=== PATIENT | male | born 1940 | race Caucasian/White ===

== ENCOUNTER → 2018-03-14 | Outpatient (CLI) | payer MEDICARE, OTHER ==
[~2018-03-14] MED LIST: ATOR20TA PO; CLOM50CA2 PO; DIAZ10TA PO; DULO60CA7 PO; ESOM40CA PO; GABA100C PO; OXYC-302 PO; OXYC80TA25 PO; TERA10CA3 PO; TEST75GE TD; TRAM50TA2 PO
[2018-03-14 13:19] LABS: CHOLESTEROL, TOTAL 197 mg/dL (140-239); HDL CHOL % 50 % (26-37); HDL CHOLESTEROL (DIRECT) 99 mg/dL (40-60); LDL CHOLESTEROL,CALCULATED 78 mg/dL (54-169); LDL/HDL RATIO 0.8 (0.5-3.0); TRIGLYCERIDES 98 mg/dL (50-200); VLDL CHOLESTEROL 20 mg/dL (0-25)
== END | disposition home or self-care (01) ==
LOC: CFH 07:08
PROVIDERS: ATTEND Internal Medicine
DX: N32.0 Bladder-neck obstruction (principal); E78.5 Hyperlipidemia, unspecified
CPT/HCPCS: 36415; 80061; 84153

== ENCOUNTER → 2018-06-20 | Outpatient (CLI) | payer MEDICARE, OTHER ==
[~2018-06-20] MED LIST changes: +ACET325T26 PO; +IBUP-1221 PO
== END | disposition home or self-care (01) ==
LOC: STAR 10:49
PROVIDERS: ATTEND Orthopaedic Surgery
DX: Z01.818 Encounter for other preprocedural examination (principal); M16.12 Unilateral primary osteoarthritis, left hip; M25.552 Pain in left hip
CPT/HCPCS: 93005

== ENCOUNTER 2018-06-25 05:39 | Day surgery (SDC) | payer MEDICARE, OTHER ==
[~2018-06-25] VITALS: Ht 170.2 cm; Wt 64.0 kg
[2018-06-25] MEDS ORDERED: LACTATED RINGERS 1,000 ML IV SCH (06:03)
[2018-06-25 06:19] VITALS: BP 145/93
[2018-06-25] MEDS ORDERED: methylPREDNISolone *ACETATE* 40 MG/ML ONE (06:38)
[2018-06-25] MEDS ORDERED: BUPIVACAINE/PF 0.5% ONE (06:38)
[2018-06-25] MEDS ORDERED: MIDAZOLAM 1 MG/ML, 2ML ONE (06:47)
[2018-06-25] MEDS ORDERED: PROPOFOL 10 MG/ML, 20ML ONE (07:10)
[2018-06-25] MEDS ORDERED: ONDANSETRON 2MG/ML, 2ML IVPush PRN (07:30)
[2018-06-25] MEDS ORDERED: ACETAMINOPHEN 325 MG TABLET PO PRN (07:30)
[2018-06-25] MEDS ORDERED: PROMETHAZINE 25 MG/ML, 1ML IM PRN (07:30)
[2018-06-25 09:53] LABS: CELLS COUNTED 84
== END 2018-06-25 09:10 | disposition home or self-care (01) ==
LOC: OUT 05:39
PROVIDERS: ATTEND Orthopaedic Surgery
DX: T84.84XA Pain due to internal orthopedic prosthetic devices, implants and grafts, initial encounter (principal); I10 Essential (primary) hypertension; Z96.641 Presence of right artificial hip joint; Z87.39 Personal history of other diseases of the musculoskeletal system and connective tissue; Z98.890 Other specified postprocedural states; Y83.8 Other surgical procedures as the cause of abnormal reaction of the patient, or of later complication, without mention of misadventure at the time of the procedure; Y92.89 Other specified places as the place of occurrence of the external cause
CPT/HCPCS: 20610; 73501; 77002; 87070; 87075; 87205; 89051; J1030; J2250; J2704; J3490; J7120; 76000

== ENCOUNTER 2018-07-16 08:02 | Inpatient (IN) | payer MEDICARE, OTHER ==
[2018-07-14 13:47] VITALS: BP 132/79
[2018-07-15 08:35] LABS: BASOPHILS # (AUTO) 0.04 x10^3/uL (0-0.1); BASOPHILS % (AUTO) 1 % (0-1); EOSINOPHILS # (AUTO) 0.31 x10^3/uL (0-0.4); EOSINOPHILS % (AUTO) 5 % (1-7); LYMPHOCYTES # (AUTO) 1.57 x10^3/uL (1-3.4); LYMPHOCYTES % (AUTO) 23 % (22-44); MD NO; MEAN CORPUSCULAR HEMOGLOBIN 32.8 pg (27.5-34.5); MEAN CORPUSCULAR HGB CONC 33.8 g/dL (33.2-36.2); MEAN PLATELET VOLUME 7.7 fL (7.4-10.4); MONOCYTES # (AUTO) 0.36 x10^3/uL (0.2-0.8); MONOCYTES % (AUTO) 5 % (2-9); NEUTROPHILS # (AUTO) 4.57 x10^3/uL (1.8-6.8); NEUTROPHILS % (AUTO) 67 % (42-75); PLATELET COUNT 326 x10^3/uL (130-400); RED BLOOD COUNT 4.65 x10^6/uL (4.38-5.82); RED CELL DISTRIBUTION WIDTH 13.1 % (9.4-14.8)
[2018-07-15 08:47] LABS: ALANINE AMINOTRANSFERASE 32 U/L (12-78); ALBUMIN 4.3 g/dL (3.4-5.0); ANION GAP 8 mmol/L (5-15); CALCIUM 8.8 mg/dL (8.5-10.1); CHLORIDE 97 mmol/L (98-107); CREATININE 0.83 mg/dL (0.7-1.3)
[2018-07-15 08:50] LABS: ALKALINE PHOSPHATASE 83 U/L (45-117); BILIRUBIN,TOTAL 0.6 mg/dL (0.2-1.0); TOTAL PROTEIN 7.9 g/dL (6.4-8.2)
[2018-07-15 10:43] LABS: MICROSCOPIC NOT IND
[2018-07-15 10:49] LABS: CULTURE INDICATED? NO
[~2018-07-16] VITALS: Ht 170.2 cm; Wt 68.1 kg
[~2018-07-16 08:02] MED LIST changes: +EPINEPHRINE 1 MG/ML, 1ML ONE; +KETOROLAC 60 MG/2 ML ONE; +ROPIvacaine/PF 0.2%, 20 ML ONE; +SODIUM CHLORIDE 0.9% 100 ML ONE; +TRANEXAMIC ACID 100 MG/ML, 10ML ONE; +VANCOMYCIN 1,000 MG ONE
[2018-07-16] MEDS ORDERED: LACTATED RINGERS 1,000 ML IV SCH (09:06)
[2018-07-16] MEDS ORDERED: CELE200C PO (09:18)
[2018-07-16] MEDS ORDERED: FINA5TAB4 PO (09:18)
[2018-07-16] MEDS ORDERED: CLOM50CA2 PO (09:18)
[2018-07-16] MEDS ORDERED: MELO15TA24 PO (09:18)
[2018-07-16] MEDS ORDERED: VANCOMYCIN PER PHARMACY MC ONE (09:30)
[2018-07-16] MEDS ORDERED: LIDOCAINE-MPF 1%, 2ML INFIL ONE (09:30)
[2018-07-16] MEDS ORDERED: PHARMACOKINETIC CONSULTATION MC ONE (10:00)
[2018-07-16] MEDS ORDERED: VANCOMYCIN 1,200 MG in SODIUM CHLORIDE 0.9% 250 ML IV ONE (10:00)
[2018-07-16] MEDS ORDERED: MIDAZOLAM 1 MG/ML, 2ML ONE (10:14)
[2018-07-16] MEDS ORDERED: FENTANYL PF 250 MCG/5ML ONE (10:14)
[2018-07-16] MEDS ORDERED: PROPOFOL 10 MG/ML, 20ML ONE (11:14)
[2018-07-16] MEDS ORDERED: SUCCINYLCHOLINE 20 MG/ML, 10ML ONE (11:14)
[2018-07-16] MEDS ORDERED: ROCURONIUM 10MG/ML,5ML ONE (11:14)
[2018-07-16] MEDS ORDERED: SUGAMMADEX 200 MG/2 ML IVPush ONE (12:58)
[2018-07-16] MEDS ORDERED: MEPERIDINE/PF 50 MG/ML ONE (13:26)
[2018-07-16] MEDS ORDERED: PROMETHAZINE 25 MG/ML, 1ML IM PRN (13:30)
[2018-07-16] MEDS: FENTANYL PF 100 MCG/2ML IV PRN ×3 (13:30→14:20)
[2018-07-16] MEDS ORDERED: DIPHENHYDRAMINE 50 MG CAPSULE PO PRN (13:30)
[2018-07-16] MEDS ORDERED: ONDANSETRON 2MG/ML, 2ML IV PRN ×2 (13:30→14:00)
[2018-07-16] MEDS ORDERED: BISACODYL 10 MG SUPP PR PRN (13:30)
[2018-07-16] MEDS ORDERED: ZOLPIDEM 5MG TABLET PO PRN (13:30)
[2018-07-16] MEDS ORDERED: ONDANSETRON 4 MG TABLET PO PRN (13:30)
[2018-07-16] MEDS ORDERED: ALUMINUM/MAG/SIMETHICONE 30 ML UDC PO PRN (13:30)
[2018-07-16] MEDS ORDERED: ACETAMINOPHEN 650 MG/20.3 ML UDC PO PRN (13:30)
[2018-07-16] MEDS ORDERED: SENNA/DOCUSATE TABLET PO PRN (13:30)
[2018-07-16] MEDS ORDERED: DIAZEPAM 5 MG TABLET PO PRN (13:30)
[2018-07-16] MEDS ORDERED: MAGNESIUM HYDROXIDE 8%, 30ML UDC PO PRN (13:30)
[2018-07-16] MEDS ORDERED: LORazepam 1MG TABLET PO PRN (13:30)
[2018-07-16] MEDS ORDERED: HYDROcodone/APAP 5/325 TABLET PO PRN (13:30)
[2018-07-16] MEDS ORDERED: PROMETHAZINE 12.5 MG SUPP PR PRN ×2 (13:30→14:00)
[2018-07-16] MEDS ORDERED: FENTANYL PF 100 MCG/2ML ONE (13:36)
[2018-07-16] MEDS ORDERED: LABETALOL 5MG/ML, 20ML IV PRN (14:00)
[2018-07-16] MEDS ORDERED: MEPERIDINE/PF 25MG/0.5ML IVPush PRN (14:00)
[2018-07-16] MEDS ORDERED: hydrALAzine 20 MG/ML, 1ML IV PRN (14:00)
[2018-07-16] MEDS ORDERED: TRANEXAMIC ACID 1,000 MG in SODIUM CHLORIDE 0.9% 100 ML IVPB ONE (14:00)
[2018-07-16] MEDS ORDERED: ONDANSETRON ODT 8 MG PO PRN (14:00)
[2018-07-16] MEDS ORDERED: OXYcodone 5 MG/5 ML ORAL.SOL UDC PO PRN (14:00)
[2018-07-16] MEDS ORDERED: HYDROmorphone 1 MG/ML, 1ML IV PRN (14:00)
[2018-07-16] MEDS ORDERED: ACETAMINOPHEN 650 MG/20.3 ML UDC ONE (14:13)
[2018-07-16] MEDS ORDERED: OXYcodone 5 MG/5 ML ORAL.SOL UDC ONE ×2 (14:14→14:17)
[2018-07-16 15:41] VITALS: BP 92/52
[2018-07-16] MEDS ORDERED: HYDROmorphone 2 MG/ML, 1ML ONE (17:22)
[2018-07-16] MEDS: HYDROmorphone 1 MG/ML, 1ML IV PRN ×2 (17:30→17:45)
[2018-07-16] MEDS: ASPIRIN 81 MG TABLET EC PO SCH (17:43)
[2018-07-16] MEDS: D5%-0.45% NACL 1,000 ML IV SCH (17:48)
[2018-07-16] MEDS: OXYcodone IR 5MG TABLET PO PRN (18:40)
[2018-07-16] MEDS: CEFAZOLIN PMX 1GM/50ML 50 ML IVPB SCH (20:04)
[2018-07-16] MEDS: ATORVASTATIN 20 MG TABLET PO SCH (20:04)
[2018-07-16] MEDS: DOCUSATE 100 MG CAPSULE PO SCH (20:05)
[2018-07-16] MEDS: CLOMIPRAMINE HCL 50 MG HOMEMEDPO SCH (20:05)
[2018-07-16 20:49] VITALS: BP 116/65
[2018-07-16 23:22] VITALS: BP 114/57
[2018-07-17] MEDS: OXYcodone IR 5MG TABLET PO PRN ×5 (00:47→17:12)
[2018-07-17 02:30] VITALS: BP 120/71
[2018-07-17] MEDS: D5%-0.45% NACL 1,000 ML IV SCH ×3 (03:45→23:45)
[2018-07-17] MEDS: CEFAZOLIN PMX 1GM/50ML 50 ML IVPB SCH (03:51)
[2018-07-17] MEDS: ASPIRIN 81 MG TABLET EC PO SCH ×2 (05:34→17:12)
[2018-07-17] MEDS ORDERED: DEXAMETHASONE 4 MG/ML, 1ML IVPush SCH (06:00)
[2018-07-17 07:23] VITALS: BP 112/68
[2018-07-17] MEDS: TAMSULOSIN 0.4 MG CAP.ER.24H PO SCH (08:34)
[2018-07-17] MEDS: PANTOPROZOLE 40MG TABLET PO SCH (08:34)
[2018-07-17] MEDS: DOCUSATE 100 MG CAPSULE PO SCH ×2 (08:34→20:35)
[2018-07-17] MEDS: FINASTERIDE 5 MG TABLET PO SCH (08:34)
[2018-07-17] MEDS: MULTIVITAMINS/MINERALS TABLET PO SCH (08:34)
[2018-07-17] MEDS: DULOXETINE 30 MG CAPSULE.DR PO SCH (08:34)
[2018-07-17] MEDS ORDERED: HYDROmorphone 2 MG/ML, 1ML ONE (08:38)
[2018-07-17] MEDS: HYDROmorphone 1 MG/ML, 1ML IV PRN (08:44)
[2018-07-17] MEDS: CLOMIPRAMINE HCL 50 MG HOMEMEDPO SCH ×2 (08:47→09:23)
[2018-07-17 13:16] VITALS: BP 146/80
[2018-07-17] MEDS: KETOROLAC 30 MG/1 ML IV SCH ×2 (13:36→23:02)
[2018-07-17 20:00] VITALS: BP 143/76
[2018-07-17] MEDS: ATORVASTATIN 20 MG TABLET PO SCH (20:35)
[2018-07-18 02:00] VITALS: BP 107/67
[2018-07-18] MEDS: OXYcodone IR 5MG TABLET PO PRN ×4 (02:30→15:13)
[2018-07-18] MEDS: KETOROLAC 30 MG/1 ML IV SCH (05:50)
[2018-07-18] MEDS: ASPIRIN 81 MG TABLET EC PO SCH (05:51)
[2018-07-18 06:35] VITALS: BP 99/65
[2018-07-18] MEDS: CLOMIPRAMINE HCL 50 MG HOMEMEDPO SCH (07:31)
[2018-07-18] MEDS: TAMSULOSIN 0.4 MG CAP.ER.24H PO SCH (07:33)
[2018-07-18] MEDS: PANTOPROZOLE 40MG TABLET PO SCH (07:33)
[2018-07-18] MEDS: DULOXETINE 30 MG CAPSULE.DR PO SCH (07:33)
[2018-07-18] MEDS: FINASTERIDE 5 MG TABLET PO SCH (07:33)
[2018-07-18] MEDS: DOCUSATE 100 MG CAPSULE PO SCH (07:33)
[2018-07-18] MEDS: MULTIVITAMINS/MINERALS TABLET PO SCH (07:34)
[2018-07-18] MEDS: D5%-0.45% NACL 1,000 ML IV SCH (07:34)
[2018-07-18 12:23] VITALS: BP 105/63
== END 2018-07-18 16:01 | disposition home or self-care (01) | DRG 467 ==
LOC: ORIP 08:02 → 4NOR 14:58 → DCLOUNGE 07-18 15:44
PROVIDERS: ADMIT Orthopaedic Surgery; ATTEND Orthopaedic Surgery
PROC: 0SPB0JZ Removal of Synthetic Substitute from Left Hip Joint, Open Approach (ICD-10-PCS; 2018-07-16)
PROC: 0LS Tendons, Reposition (ICD-10-PCS; 2018-07-16)
PROC: 0SRB01Z Replacement of Left Hip Joint with Metal Synthetic Substitute, Open Approach (ICD-10-PCS; principal; 2018-07-16 11:00)
DX: T84.031A Mechanical loosening of internal left hip prosthetic joint, initial encounter (principal); E87.1 Hypo-osmolality and hyponatremia; Y83.8 Other surgical procedures as the cause of abnormal reaction of the patient, or of later complication, without mention of misadventure at the time of the procedure; E66.01 Morbid (severe) obesity due to excess calories; M19.90 Unspecified osteoarthritis, unspecified site; Y92.89 Other specified places as the place of occurrence of the external cause; Z68.23 Body mass index [BMI] 23.0-23.9, adult
CPT/HCPCS: 36415; 72170; 80053; 81003; 85014; 85018; 85025; 86850; 86900; 87081; 87147; C1713; G0378; J0171; J0690; J1100; J1170; J1885; J2175; J2250; J2704; J2795; J3010; J3370; C1776; J0330; J7050; J7120

== ENCOUNTER → 2019-11-12 | Outpatient (CLI) | payer MEDICARE, OTHER ==
[~2019-11-12] MED LIST changes: +CELE200C PO; -EPINEPHRINE 1 MG/ML, 1ML ONE; +FINA5TAB4 PO; -KETOROLAC 60 MG/2 ML ONE; +MELO15TA24 PO; -ROPIvacaine/PF 0.2%, 20 ML ONE; -SODIUM CHLORIDE 0.9% 100 ML ONE; -TRANEXAMIC ACID 100 MG/ML, 10ML ONE; -VANCOMYCIN 1,000 MG ONE
== END | disposition home or self-care (01) ==
LOC: CFH 11:02
PROVIDERS: ATTEND Nurse Practitioner
DX: S76.311A Strain of muscle, fascia and tendon of the posterior muscle group at thigh level, right thigh, initial encounter (principal); X58.XXXA Exposure to other specified factors, initial encounter; Y93.89 Activity, other specified; Y92.89 Other specified places as the place of occurrence of the external cause; Y99.8 Other external cause status

== ENCOUNTER 2020-02-15 14:45 | Emergency (ER) | payer MEDICARE, OTHER ==
[~2020-02-15] VITALS: Ht 172.7 cm; Wt 65.1 kg
--- NOTE | 2020-02-15 15:10 | NUR ---
FIRST CONTACT WITH PT. PT C/O LOW ABD PAIN, CONSTIPATION SINCE , COLACE NO HELP, LBM WED OR , DENIES NV. PT'S AOX4. RESPS EVEN AND UNLABORED. BP/SPO2 MONITORS IN PLACE. CALL LIGHT WITHIN REACH.
[2020-02-15] MEDS ORDERED: METHYLNALTREXONE 12 MG/0.6 ML SYR SQ ONE ×2 (15:19→15:30)
--- NOTE | 2020-02-15 15:31 | NUR ---
pt medicated per emar. pt tolerated well. bedside comode at bedside now.
[2020-02-15 15:50] LABS: BASOPHILS # (AUTO) 0.05 x10^3/uL (0-0.1); BASOPHILS % (AUTO) 1 % (0-1); EOSINOPHILS # (AUTO) 0.27 x10^3/uL (0-0.4); EOSINOPHILS % (AUTO) 6 % (1-7); LYMPHOCYTES # (AUTO) 1.62 x10^3/uL (1-3.4); LYMPHOCYTES % (AUTO) 35 % (22-44); MD NO; MEAN CORPUSCULAR HEMOGLOBIN 31.3 pg (27.5-34.5); MEAN CORPUSCULAR HGB CONC 33.1 g/dL (33.2-36.2); MEAN CORPUSCULAR VOLUME 94.7 fL (81-97); MEAN PLATELET VOLUME 8.2 fL (7.4-10.4); MONOCYTES # (AUTO) 0.34 x10^3/uL (0.2-0.8); MONOCYTES % (AUTO) 7 % (2-9); NEUTROPHILS # (AUTO) 2.42 x10^3/uL (1.8-6.8); NEUTROPHILS % (AUTO) 52 % (42-75); PLATELET COUNT 220 x10^3/uL (130-400); RED BLOOD COUNT 3.99 x10^6/uL (4.38-5.82); RED CELL DISTRIBUTION WIDTH 13.1 % (9.4-14.8)
--- NOTE | 2020-02-15 15:50 | NUR ---
pt in xray at this time.
[2020-02-15 15:57] LABS: ALBUMIN 3.5 g/dL (3.4-5.0); ANION GAP 6 mmol/L (5-15); CALCIUM 8.5 mg/dL (8.5-10.1); CHLORIDE 103 mmol/L (98-107)
[2020-02-15 16:00] LABS: ALANINE AMINOTRANSFERASE 31 U/L (12-78); ALKALINE PHOSPHATASE 84 U/L (45-117); BILIRUBIN,TOTAL 0.5 mg/dL (0.2-1.0); CREATININE 0.93 mg/dL (0.7-1.3); TOTAL PROTEIN 6.9 g/dL (6.4-8.2)
--- NOTE | 2020-02-15 16:31 | NUR ---
PT IS NOT ABLE TO HAVE BM YET. PT STATES"I FEEL OK" PA NOTIFIED AND STATES"JUST WAIT A LITTLE BIT LONGER. PT DENIES ENEMA. SO WE CAN'T DO ANY FOR HIM NOW. EVEN IF PT WON'T HAVE BM HERE, DC LATER." PT SITTING ON GURNEY. PT'S AOX4. RESPS EVEN AND UNLABORED.
[2020-02-15 16:36] VITALS: BP 117/79
--- NOTE | 2020-02-15 16:57 | NUR ---
PT STATED " I CAN'T POOP YET. I TRIED BUT JUST GAS. CAN I HAVE SOMETHING BY ORAL?" PA NOTIFIED AND STATED "HE CAN TAKE ORAL MED AT HOME. I'LL TALK TO HIM IN 5 MIN" PT IN ROOM NOW.
[2020-02-15] MEDS ORDERED: MAGNESIUM CITRATE 300ML ORAL SOL PO ONE (17:00)
[2020-02-15] MEDS ORDERED: MAGNESIUM CITRATE 300ML ORAL SOL ONE (17:02)
--- NOTE | 2020-02-15 17:09 | NUR ---
pt medicated per emar. pt tolerated well.
--- NOTE | 2020-02-15 17:15 | NUR ---
Patient given discharge instructions and they have confirmed that they understand the instructions. Patient ambulatory with steady gait.
== END 2020-02-15 17:16 | disposition home or self-care (01) ==
LOC: ED 16:35
DX: K59.00 Constipation, unspecified (principal); R10.30 Lower abdominal pain, unspecified; G89.29 Other chronic pain
CPT/HCPCS: 36415; 74021; 80053; 85025; 96372; 99284

== ENCOUNTER → 2020-09-06 | Outpatient (CLI) | payer MEDICARE, OTHER ==
[2020-09-06 07:30] LABS: MEAN CORPUSCULAR HEMOGLOBIN 30.7 pg (27.5-34.5); MEAN CORPUSCULAR HGB CONC 32.5 g/dL (33.2-36.2); MEAN PLATELET VOLUME 7.6 fL (7.4-10.4); PLATELET COUNT 222 x10^3/uL (130-400); RED BLOOD COUNT 4.04 x10^6/uL (4.38-5.82)
[2020-09-06 07:45] LABS: CHOL/HDL RATIO 2.1
[2020-09-06 07:46] LABS: LDL/HDL RATIO 0.9 (0.5-3.0)
== END | disposition home or self-care (01) ==
LOC: LAB 07:11
PROVIDERS: ATTEND Internal Medicine
DX: E78.5 Hyperlipidemia, unspecified (principal); D64.9 Anemia, unspecified
CPT/HCPCS: 36415; 80061; 85027